=== PATIENT | male | born 1965 | race Caucasian/White ===

== ENCOUNTER 2021-08-15 08:22 | Emergency (ER) | payer MEDICAID, SELFPAY ==
[2021-08-15 08:24] VITALS: BP 172/91; PULSE 110; RESP 17; TEMP 37.3; O2SAT 100; BMI 27.3
--- NOTE | 2021-08-15 09:15 | RAD_ITS ---
STUDY: X-RAY - LUMBAR SPINE REASON FOR EXAM: Male, 55 years old. Injury/Pain TECHNIQUE: 3 view(s) of the lumbar spine were obtained. COMPARISON: None FINDINGS: Normal lumbar lordosis. There is no substantial scoliosis. There is a normal alignment of the vertebrae. Normal vertebral bodies and endplates. Normal disc space heights. Chronic appearing compression deformity of the L1 vertebral body with approximately 50% loss of height and corticated margins without a visible acute fracture line or displaced fragment. Acute to subacute appearing mild compression fracture of the superior endplate of the L2 vertebral body. Moderate to severe disc space narrowing at L4-L5 and L5-S1. The soft tissue structures are unremarkable. RAD/Lumbar Spine 2 or 3 Views IMPRESSION: 1. Acute to subacute appearing mild compression fracture of the superior endplate of the L2 vertebral body. 2. Chronic appearing compression deformity of the L1 vertebral body with approximately 50% loss of height and corticated margins without a visible acute fracture line or displaced fragment. Electronically Signed: Tex Butts MD at 9:49 EDT ,
--- NOTE | 2021-08-15 09:15 | RAD_ITS ---
STUDY: X-RAY - LEFT ANKLE REASON FOR EXAM: Male, 55 years old. Injury/Pain TECHNIQUE: 3 view(s) of the ankle. COMPARISON: None. FINDINGS: Normal visualized distal tibia and fibula. Normal medial and lateral malleoli. Normal tibiotalar articulation and ankle mortise. Normal visualized talus and calcaneus. The visualized subtalar, talonavicular, calcaneocuboid and tarsal articulations are normal. There is no demonstrated fracture. The soft tissue structures are unremarkable. RAD/Ankle min 3 Views IMPRESSION: Normal x-ray examination of the ankle. Electronically Signed: Tex Butts MD at 9:44 EDT ,
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
[2021-08-15] MEDS: Naproxen 375 MG Tablet PO (09:35)
== END 2021-08-15 10:07 | disposition home or self-care (01) ==
PROVIDERS: Emergency Provider Emergency Medicine; PCP Family Medicine; Visit Provider Emergency Medicine
DX: S32.019A Unspecified fracture of first lumbar vertebra, initial encounter for closed fracture (principal); X58.XXXA Exposure to other specified factors, initial encounter; Z87.891 Personal history of nicotine dependence; M79.672 Pain in left foot
CPT/HCPCS: 72100; 73610; 99282

== ENCOUNTER 2022-05-25 08:30 | Outpatient (RCR) | payer MEDICARE, MEDICAID, SELFPAY ==
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
--- NOTE | 2022-04-25 09:49 | HP.PTREVAL_ITS ---
Dr. John Paul Johnston MD, It has been my pleasure to treat JONATHAN LIN over the last 11 visits for L1 compression fracture. chronic pain. Please see the progress note below for an update on the physical therapy plan of care! Subjective: This has really helped me. Maude treated me well in the water. Everything is feeling better. Looser. Doing HEP 3x/day. Will continue at the [facility] next month. Pain level in last week is up to 6/10 in LB after extra lifting and driving. Can ride in car longer without as much pain. Has not needed knee brace for 5 days which is huge. No buckling. Objective/Function: weight shifted off L hip in sitting today. Exits chair using UE but smooth and without pain and quickly. LB AROM ext max limited but improved. Flexion causes popping and stretches LB . SB are full. Ties shoes I. Slow movement and ambulation today but defintiely improved mood and movement. Appropriate to continue to I in pool and gym with fair prognosis for new goals. Plan Plan: 3x/week for 2 weeks in pool to work to i [facility] with pics/[facility]. then 3x/week for 2 weeks land to work toward a gym machine based core, postural, LE strength program pt can do at [facility]. Ensure LB ROM improving and stretching continues. Balance/Gait/Functional tests - Balance/Special Test Scores Functional Gait Assessment Score: 27 % Disability: 10.0000 Oswestry Low Back Score: 17 Goals Goal 1:: Pt feel pain overall is 50% better at 3/10 at worst Goal Time Frame: 4-6 Weeks Goal Progress: Progressing Goal 2:: Pt I in ex to manage condition of balance, flex and strength in water or on land Goal Time Frame: 4-6 Weeks Goal Progress: Progressing, needs gym Goal 3:: oswestry score 20 or better Goal Time Frame: 4-6 Weeks Goal Progress: Goal Met Goal 4:: Put on shoes and socks without noticing LB Goal Time Frame: 4-6 Weeks Goal Progress: Goal Met Goal 5:: Oswestry score 12 or better. Goal Time Frame: 4-6 Weeks Goal 6:: Pt i in gym based machine exercises for strength LE and posture and core and compliant with I water ex at [facility](starting in May) Goal Time Frame: 4-6 Weeks Anticipated Interventions Patient/Client Instruction: Educate patient on: Condition, Plan of Care For the Purpose of:: To decrease pain, To increase ROM, To improve muscle performance and motor function, To improve ability of physical actions for home/community/work/leisure, To improve gait and locomotor functions Therapeutic Exercise to Include: Strength training, Balance training, Postural training, Flexibilty training, Gait and locomotor training, In an aquatic setting For the Purpose of:: To decrease pain, To increase ROM, To improve nutrient delivery to tissue, To improve muscle performance and motor function, To increase tolerance to activity/condition/position, To improve ability of physical actions for home/community/work/leisure, To improve gait and locomotor functions Please do not hesitate to contact me at [phone] by phone or if you have questions or concerns regarding this new plan of care! Sincerely, Bandar Rodriguez, DPT, OCS, CSCS
--- NOTE | 2022-05-25 09:15 | HP.PTDCSUM ---
It has been my pleasure to treat JONATHAN LIN referred by Dr. John Paul Johnston MD, with the diagnosis of L1 compression fracture. chronic pain for a total of 21 visit(s). Discharge Date: 05/25/22 Please see the following information for a summary of their discharge status. Subjective: Doing well. Getting more sleep and less pain. Doing much better. Will see doctor next month. Has not continued in the pool and still will continue at gym [facility] or [facility]. Can do workout on his own. all over. Pain Intensity (Out of 10): 2 B knees Pain Intensity (Out of 10): 4 % Improvement: 70 Objective/Function: LB AROM extension mild pain BW and min limited, SB and flexion are full and just feel tight. Walking is normal(brace on L knee) and steps are reciprocal with one rail. Overall moving better and happy to continue on his own in gym and pool. Goal 1:: Pt feel pain overall is 50% better at 3/10 at worst Goal Progress: 70% Goal 2:: Pt I in ex to manage condition of balance, flex and strength in water or on land Goal Progress: Goal Met Goal 3:: oswestry score 20 or better Goal Progress: Goal Met Goal 4:: Put on shoes and socks without noticing LB Goal Progress: Goal Met Goal 5:: Oswestry score 12 or better. Goal Progress: Progressing Goal 6:: Pt i in gym based machine exercises for strength LE and posture and core and compliant with I water ex at [facility](starting in May) Goal Progress: Goal Met Plan: d/c Discharge Comments: Pt to continue HEP daily pool exercises 2x/week adn gym ex 3x/week on own either as member at [employer] or the [facility] If there are questions or concerns regarding this patient's physical therapy, please feel free to call me at [phone]. Thank you for the referral of this patient. Sincerely, Bandar Rodriguez, DPT, OCS, CSCS Balance/Gait/Functional tests - Balance/Special Test Scores Functional Gait Assessment Score: 27 % Disability: 10.0000 Oswestry Low Back Score: 17
== END 2022-05-25 10:08 | disposition home or self-care (01) ==
LOC: PT 08:30
PROVIDERS: PCP Family Medicine; Referring Provider Anesthesiology Pain Medicine; Visit Provider Anesthesiology Pain Medicine
DX: S32.010A Wedge compression fracture of first lumbar vertebra, initial encounter for closed fracture (principal); M51.36 Other intervertebral disc degeneration, lumbar region
CPT/HCPCS: 97110; 97113; 97162; 97164; 97530

== ENCOUNTER 2023-07-26 07:50 | Emergency (ER) | payer MEDICARE, MEDICAID, SELFPAY ==
[2023-07-26 07:50] VITALS: BP 174/106; PULSE 88; RESP 16; O2SAT 97
[2023-07-26 07:51] VITALS: BP 174/106; PULSE 88; RESP 16; TEMP 36.2; O2SAT 97; BMI 29.1
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
[2023-07-26] MEDS: SUMAtriptan 6 MG/0.5 ML Vial SC (08:14)
[2023-07-26] MEDS: Ondansetron ODT 4 MG Tablet PO (08:14)
[2023-07-26 09:52] VITALS: BP 154/98; PULSE 60; RESP 17; TEMP 36.4; O2SAT 97
== END 2023-07-26 09:52 | disposition home or self-care (01) ==
PROVIDERS: Emergency Provider Emergency Medicine; PCP Family Medicine; Visit Provider Emergency Medicine
DX: G43.909 Migraine, unspecified, not intractable, without status migrainosus (principal); Z87.891 Personal history of nicotine dependence; R11.0 Nausea
CPT/HCPCS: 96372; 99282; J3030

== ENCOUNTER 2023-12-15 14:30 | Outpatient (RCR) | payer MEDICARE, SELFPAY ==
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
--- NOTE | 2023-12-15 15:15 | HP.PTDCSUM_ITS ---
Discharge Summary D/C summary: It has been my pleasure to treat JONATHAN LIN referred by ALISSON Combs, with the diagnosis of chronic LBP, lumbar radiculopathy for a total of 13 visit(s). Discharge Date: 12/15/23 Please see the following information for a summary of their discharge status. Subjective Subjective: Much better , 100% better than he did. 4/10 intermittent pain comes and goes. Across LB. Will get in pool as he got a membership this week. Will continue in gym. Will do pool daily and gym 3x/week. Will see [place] [facility] in 2 weeks. Feels much better adn ready to be on his own. Will see doctor in two weeks. Pain LBP: Pain Intensity (Out of 10): 4 Overall Improvement % Improvement: 80 Objective Objective/Function: extension LB still very limited and increases his pain but can walk up tall now without VC.Flexion is slow and painful but able, R SB > L SB limited and painful. Walking well and I. Good progress overall and willing, ready to continue on his own. Goals Goal 1:: I appropriate pool based or HEP to limit future problems Goal Progress: Goal Met Goal 2:: walk up tall with fair pelvic movement wihtout pain increase. Goal Progress: Progressing Goal 3:: Pain 50% better at 3/10 at worst and manageable Goal Progress: Goal Met Goal 4:: oswestry score 10 or better Goal Progress: Goal Met Plan Plan: d/c to [facility] d[facility] pool program D/C Information d/c sentence: If there are questions or concerns regarding this patient's physical therapy, please feel free to call me at [phone]. Thank you for the referral of this patient. Sincerely, Bandar Rodriguez, DPT, OCS, CSCS Balance/Gait/Functional tests Balance/Special Test Scores Oswestry Low Back Score: 8 Improvement % Improvement: 80
== END 2023-12-15 19:00 | disposition home or self-care (01) ==
LOC: PT 14:30
PROVIDERS: PCP Family Medicine; Referring Provider Nurse Practitioner Family; Visit Provider Nurse Practitioner Family
DX: M54.16 Radiculopathy, lumbar region (principal); G89.29 Other chronic pain; M54.50 Low back pain, unspecified; S32.020D Wedge compression fracture of second lumbar vertebra, subsequent encounter for fracture with routine healing
CPT/HCPCS: 97110; 97113; 97162; 97530

== ENCOUNTER 2024-09-05 08:25 | Emergency (ER) | payer MEDICARE, SELFPAY ==
[2024-09-05 08:25] VITALS: BP 158/100; PULSE 74; RESP 14; TEMP 36.6; O2SAT 98; BMI 29.9
[2024-09-05 09:47] VITALS: BP 166/108; PULSE 68; RESP 16; TEMP 36.6; O2SAT 99
== END 2024-09-05 09:48 | disposition home or self-care (01) ==
PROVIDERS: Emergency Provider Emergency Medicine; PCP Family Medicine; Visit Provider Emergency Medicine
DX: G43.909 Migraine, unspecified, not intractable, without status migrainosus (principal); F17.210 Nicotine dependence, cigarettes, uncomplicated
CPT/HCPCS: 96372; 99282; J3030